=== PATIENT | female | born 1950 | race Caucasian/White ===

== ENCOUNTER → 2022-03-17 09:23 | Outpatient (BNVA) | payer MEDICARE, OTHER, SELFPAY | PROVIDERS: PCP Family Medicine; Referring Provider Family Medicine; Visit Provider Student in an Organized Health Care Education/Training Program | DX: M17.12 Unilateral primary osteoarthritis, left knee (principal) | CPT/HCPCS: 20610; 99204; J1040 ==

== ENCOUNTER 2024-03-18 11:49 | Outpatient (CLI) | payer MEDICARE, OTHER, SELFPAY ==
--- NOTE | 2024-03-18 11:00 | DI.RAD_ITS ---
Exam(s) XR HIP LT COMPLETE AP PELVIS EXAM: XR HIP LT COMPLETE AP PELVIS CLINICAL HISTORY: LEFT HIP PAIN. TECHNIQUE: 2D digital imaging was performed. Two views COMPARISON: CR Lumbar Spine 2 or 3 Views from 08/10/2023 CR Hip Left 2 Views w/ Pelvis from 08/10/2023 CR Lumbar Spine Comp Incl Bending from 08/17/2023 FINDINGS: BONES: No acute enthesophytes present the iliac wings and greater trochanters. Fracture is present. No bony destructive lesion is seen. JOINTS: No dislocation present. The hip joint spaces are maintained. There is spurring from the acet abula and margin of the left femoral head. Spurring at the SI joints. SOFT TISSUE: Normal. IMPRESSION: Moderate degenerative changes of the left hip. DATA REPOSITORY: RADIATION DOSE DELIVERED:
== END 2024-03-18 11:50 | disposition home or self-care (01) ==
LOC: DIORS 11:49
PROVIDERS: PCP Family Medicine; Referring Provider Family Medicine; Visit Provider Student in an Organized Health Care Education/Training Program
DX: M16.12 Unilateral primary osteoarthritis, left hip; M70.62 Trochanteric bursitis, left hip
CPT/HCPCS: 99214; 73502

== ENCOUNTER 2024-05-03 01:09 | Outpatient (CLI) | payer MEDICARE, OTHER, SELFPAY ==
[2024-05-03 11:39] LABS: HCT 37.9 % (36.0-46.0); HGB 12.5 g/dL (11.2-15.7); MCH 33.8 pg (27.0-33.0); MCV 102 fL (80-95); MPV 8.9 fL (8.0-11.0); Platelet Count 232 10^3/uL (130-400); RDW 13.3 % (11.7-14.6); RDW-SD 50.2 fL; WBC 5.93 10^3/uL (4.4-10.8)
[2024-05-03 12:00] LABS: Anion Gap 7.8 mmol/L (3-11); BUN 9 mg/dL (7-18); CO2 29.2 mmol/L (21.0-32.0); CREATININE 0.7 mg/dL (0.55-1.02); Calcium 9.2 mg/dL (8.5-10.1); Chloride 106 mmol/L (98-107); Glucose 96 mg/dL (74-106); Potassium 4.2 mmol/L (3.5-5.1); Sodium 143 mmol/L (136-145)
== END 2024-05-03 01:10 | disposition home or self-care (01) ==
LOC: LBO 01:09
PROVIDERS: PCP Family Medicine; Visit Provider Student in an Organized Health Care Education/Training Program
DX: M16.12 Unilateral primary osteoarthritis, left hip (principal); Z01.818 Encounter for other preprocedural examination
CPT/HCPCS: 36415; 80048; 85027

== ENCOUNTER 2024-05-17 05:49 | Day surgery (SDC) | payer MEDICARE, OTHER, SELFPAY ==
[2024-05-17] VITALS (43 sets, daily range): BP systolic 97–156; BP diastolic 45–98; PULSE 57–82; RESP 9–23; TEMP 36.3–36.6; O2SAT 92–99; BMI 28.3
[2024-05-17] MEDS: Acetaminophen 500 MG TAB 1000 MG PO (06:38)
[2024-05-17] MEDS: Celecoxib 200 MG CAP 400 MG PO (06:39)
[2024-05-17] MEDS: Lactated Ringers 1,000 ML 80 ML IV (07:05)
--- NOTE | 2024-05-17 07:20 | W.ANESPRE ---
General Info Date of Service Date Performed: 05/17/24 Height: 5 ft 4 in Weight: 74.9 kg Body Mass Index (BMI): 28.3 Surgical Procedure: Operation Date: 05/17/24 07:50 Proposed Procedure Side Surgeon p Hip Total Hip Anterior Left Héctor Eaton MD Meds Allergies and Home Medications Allergies Allergy/AdvReac Type Severity Reaction Status Date / Time No Known Allergies Allergy Verified 05/17/24 06:17 Home Medication ?Medication ?Instructions ?Recorded coenzyme Q10 100 mg capsule (Co 100 mg PO DAILY 03/17/22 Q-10) folic acid 1 mg tablet 2 mg PO DAILY 03/17/22 lisinopril 10 mg tablet 10 mg PO DAILY 03/17/22 methotrexate sodium 2.5 mg tablet 10 mg PO BID 03/17/22 pravastatin 20 mg tablet 20 mg PO DAILY 03/17/22 valacyclovir 500 mg tablet 500 mg PO DAILY PRN 01/17/24 inykpft-tjciedjtv-[id number] 333 mg-133 1 tab PO DAILY 05/03/24 mg-5 mg tablet acetaminophen 500 mg tablet 500 mg PO ONCE 05/17/24 (Acetaminophen Extra Strength) ibuprofen 400 mg tablet (IBU) 400 mg PO ONCE 05/17/24 leucovorin calcium 5 mg tablet mg 05/17/24 marijuana gummie 05/17/24 Current Visit Medications: Current Medications Generic Name Dose Route Start Last Admin Trade Name Darwin PRN Reason Stop Dose Admin Acetaminophen 1,000 mg 05/17/24 06:00 05/17/24 06:38 Acetaminophen 500 Mg Tab PO 05/17/24 23:59 1,000 mg PREOP SORAYA Administration Celecoxib 400 mg 05/17/24 06:00 05/17/24 06:39 Celecoxib 200 Mg Cap PO 05/17/24 23:59 400 mg PREOP SORAYA Administration Ringer's Solution 1,000 mls @ 80 mls/hr 05/17/24 06:00 05/17/24 07:05 IV 05/17/24 23:59 80 mls/hr INFUSION SORAYA Administration Cefazolin Sodium/Dextrose 2 gm in 50 mls @ 100 mls/hr 05/17/24 06:00 Ancef Duplex IVPB 05/17/24 23:59 PREOP SORAYA Tranexamic Acid/Sodium Chloride 1,000 mg in 100 mls @ 600 mls/hr 05/17/24 06:00 IVPB 05/17/24 23:59 PREOP SORAYA IV Miscellaneous Supplies 1 each 05/17/24 06:00 Iv Access IV 05/17/24 23:59 DIRECTED SORAYA Sodium Chloride 0 ml 05/17/24 06:00 Normal Saline Flush 10 Ml Syr IV 05/17/24 23:59 PRN PRN Sodium Chloride 0 ml 05/17/24 06:00 Normal Saline 10 Ml Vial IJ 05/17/24 23:59 DIRECTED PRN Sterile Water 0 ml 05/17/24 06:00 Water,Injection,Sterile 10 Ml Vial IJ 05/17/24 23:59 DIRECTED PRN PFSH Active Problems Active Problems: Problem Status Onset Code 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 states she is prone to superficial phlebitis TGA (transient global amnesia) Last March - following phone call about her scheduled right shoulder surgery Denies additional episodes; negative neuro work up Medical History Comments:: pt. reports it take alot to get her under Surgical History Surgical History Status post tubal ligation H/O colonoscopy History of breast lump/mass excision s/p right and left mass excisions mammos yearly Status post vein stripping bilateral Status post arthroscopy of right knee Fracture of right distal radius s/p ORIF Followed by hardware removal Status post right rotator cuff repair (04/24/23) Tobacco Smoking/Tobacco Use Status: Former Tobacco Use Alcohol Alcohol Intake: current Alcohol intake frequency: a few times a week Substance Use Substance use: Daily Substance use type: marijuana Details: Gummies HS for sleep. alcohol t-1, 2 glasses of wine Vital Signs and Lab Results Vital Signs Most Recent Vital Signs in EMR: Most Recent Vital Signs Temp Pulse Resp BP Pulse Ox 36.5 C 73 18 156/55 H 98 05/17/24 06:26 05/17/24 06:26 05/17/24 06:26 05/17/24 06:26 05/17/24 06:26 Lab Results Blood Type / Crossmatch: No Data to Display Complete Blood Count: White Blood Count 5.93 10^3/uL (4.4-10.8) 05/03/24 11:26 Red Blood Count 3.70 10^6/uL (3.93-5.22) L 05/03/24 11:26 Hemoglobin 12.5 g/dL (11.2-15.7) 05/03/24 11:26 Hematocrit 37.9 % (36.0-46.0) 05/03/24 11:26 Platelet Count 232 10^3/uL (130-400) 05/03/24 11:26 Complete Metabolic Panel: Sodium 143 mmol/L (136-145) 05/03/24 11:26 Potassium 4.2 mmol/L (3.5-5.1) 05/03/24 11:26 Chloride 106 mmol/L (98-107) 05/03/24 11:26 Carbon Dioxide 29.2 mmol/L (21.0-32.0) 05/03/24 11:26 BUN 9 mg/dL (7-18) 05/03/24 11:26 Creatinine 0.7 mg/dL (0.55-1.02) 05/03/24 11:26 Est GFR (CKD-EPI 2020) 90.70 (mL/min/1.73m2) 05/03/24 11:26 Calcium 9.2 mg/dL (8.5-10.1) 05/03/24 11:26 Glucose 96 mg/dL (74-106) 05/03/24 11:26 Liver Function Panel: No Data to Display Coagulation Panel: No Data to Display Cardiac Panel: No Data to Display Arterial Blood Gas: No Data to Display Venous Blood Gas: No Data to Display Pancreas Panel: No Data to Display Thyroid Panel: No Data to Display Infectious Disease: No Data to Display Blood Cultures: No Data to Display Toxicology Panel: No Data to Display Anesthesia Assessment and Plan Anesthesia History Personal History: No History of Anesthesia Complications Family History: No Family History of Anesthesia Complications Exercise Tolerance Exercise Tolerance: Metabolic Equivalents>4 Pertinent Negatives Pertinent Negatives: No Symptoms of GERD Cardiac & Pulmonary Exam Cardiac Exam: Normal S1/S2 Heart Sounds Pulmonary Exam: Clear Bilateral Breath Sounds Implantable Cardiac Device Does patient have a Pacemaker or an ICD?: No Airway Exam Known Difficult Airway: No Mallampati Class: 1 Mouth Opening: Normal (> 3cm) Thyromental Distance: Greater than 3 cm Neck Range of Motion: Full ROM Neck Circumference: Normal Teeth Condition: Normal Dentition ASA Classification ASA Score: ASA 2 Emergency Case?: No NPO Status NPO Status: NPO Clears >2 hours, Solids >8 hours Anesthesia Plan Resuscitation Status: Full Code Anesthesia Technique: General Anesthesia Airway Planned: Endotracheal Tube Monitors Used: Standard Monitors Preoperative Comments:: Pt requesting GETA. Family member with SAB complication and is not interested in spinal.
--- NOTE | 2024-05-17 07:45 | W.PM.DSUDISC ---
Date of service: 05/17/24 Discharge Plan Disposition Patient Disposition: Home Condition: Good Discharge Details Reason For Visit: Left hip DJD Attending Provider: Héctor Eaton Primary Care Provider: Glenn Dalton [place] Meds and New Rx's Prescriptions: New celecoxib [Celebrex] 200 mg capsule 200 mg PO BID PRNQty: 60 0RF Rx Instructions: Take one tablet twice daily for pain and inflammation aspirin 81 mg tablet,delayed release (DR/EC) 81 mg PO BID 30 Days Qty: 60 0RF acetaminophen 500 mg tablet 1,000 mg PO Q8H PRN Qty: 90 0RF Rx Instructions: Take two tablets up to every 8 hours as needed for pain pantoprazole 40 mg tablet,delayed release (DR/EC) 40 mg PO DAILY Qty: 14 0RF dexamethasone 4 mg tablet 4 mg PO DAILY Qty: 2 0RF Rx Instructions: Take one tablet once daily for two days docusate sodium [Colace] 100 mg capsule 100 mg PO BID Qty: 30 0RF oxycodone 5 mg tablet 5 mg PO Q6H PRNQty: 12 0RF Rx Instructions: Take one tablet up to every 6 hours as needed for severe postoperative pain Continued methotrexate sodium 2.5 mg tablet 10 mg PO BID Patient Comments: pt. reports she takes 9 tablets on monday lisinopril 10 mg tablet 10 mg PO DAILY folic acid 1 mg tablet 2 mg PO DAILY Rx Instructions: ONLY 6 DAYS PER WEEK pravastatin 20 mg tablet 20 mg PO DAILY coenzyme Q10 [Co Q-10] 100 mg capsule 100 mg PO DAILY vbtgdgs-mvdobookg-kduv 333-133-5 mg tablet 1 tab PO DAILY valacyclovir 500 mg tablet 500 mg PO DAILY PRN leucovorin calcium 5 mg tablet marijuana gummie Patient Comments: takes at night Discontinued acetaminophen [Acetaminophen Extra Strength] 500 mg tablet 500 mg PO ONCE Patient Comments: 1000 mg ibuprofen [IBU] 400 mg tablet 400 mg PO ONCE Discharge Instructions Additional Instructions: Total Hip Discharge Instructions Activity: The most important activity is to walk. You should try to take short walks a few times a day. You have no restrictions on movement or positioning, but do not try to force what you do. You will find some stiffness and weakness with hip flexion (lifting your knee). Do not try to strengthen this too early, continue to practice walking and stairs and this will come. - Outpatient physical therapy can be helpful to help return you to a normal gait and improve your flexibility and strength. This can start around 2 weeks. For some patients, it?s not necessary. Usually this is determined at the time of discharge or at the first post-operative visit. - You should wear the SOPHIE hose on both legs for 2 weeks. Dressing: Keep the surgical dressing in place for at least one week. After the first week it may be removed and replace with light gauze and tape or nothing. It may get wet after 3 days but avoid soaking the dressing. If it gets wet, just lightly pat dry. It is important to always keep some gauze between skin folds, especially when you are sitting. Spend some time with the wound exposed when you are lying flat as the incision does wrinkle onto itself. Medications: - You should take Tylenol and an anti-inflammatory Celebrex as your primary pain control medications. If the Celebrex is too expensive or not covered, please call the office for another alternative (Advil/Ibuprofen or Naproxen/Aleve). - You have been prescribed a stronger pain medication Oxycodone for breakthrough pain, take as needed as prescribed. - You have also been prescribed a stomach acid reduction agent Pantoprozole to help reduce stomach acid and reflux. - You have also been prescribed Decadron to help with post-operative nausea and pain. You will take this for two days starting tomorrow. - You will be taking Aspirin 81mg twice a day for DVT prevention unless instructed otherwise. - If you have constipation you should take Colace (which has been prescribed) or Miralax (which is available [id number]). It takes most people 3-4 days to have a bowel movement. Follow-up: 2 weeks If you have any acute concerns or questions, please do not hesitate to contact the office at [phone]. You may contact Dr. Eaton with any questions after hours through the hospital at [phone] or on his cell phone at [phone]. Referrals: Héctor Eaton MD [ [facility] STAFF PHYSICIAN] - Equipment/Supplies: Walker Activity:: Elevate Remove Dressings/Wound Care:: Do Not Remove Shower/Bathe:: Cover Diet:: As Tolerated Discharge Orders Discharge Orders: Discharge Order (Routine); Ordered 05/17/24 Ordered By: Kristine Conroy
[2024-05-17] MEDS: ceFAZolin 2 GM/50 ML BAG IVPB (07:59)
[2024-05-17] MEDS: TRANEXAMIC ACID/SOD. CHL. 1,000 MG/100 ML BAG 600 MG IVPB (08:15)
--- NOTE | 2024-05-17 09:16 | DI.RAD_ITS ---
Exam(s) XR HIP LT IN OR EXAM: XR HIP LT IN OR CLINICAL HISTORY: Degenerative joint disease of left hip. TECHNIQUE: 2D and realtime digital imaging was performed. COMPARISON: CR XR HIP LT COMPLETE AP PELVIS from 03/18/2024 FINDINGS: Hard copy image shows placement of a left hip prosthesis. Alignment appears satisfactory. Please see procedure note for details. Fluoro time: 30.9seconds RADIATION DOSE DELIVERED: Lonnier=2.53 mGy
--- NOTE | 2024-05-17 09:45 | ROE_ITS ---
Operative Note Operative Note PRE-OP DIAGNOSIS: Left Hip Osteoarthritis POST-OP DIAGNOSIS: same PROCEDURE: Left Anterior Total Hip Arthroplasty with Intraoperative Navigation SURGEON: Héctor Eaton MUSICAL INSTRUMENT SUPERVISOR: Eugenie Dorman ANESTHESIA TYPE: General LMA/ETT Refer to Anesthesia Record ESTIMATED BLOOD LOSS: 300 PATHOLOGY: none sent TOURNIQUET TIME: 0 COMPLICATIONS: None Patient was transported to: PACU Patient's condition: stable Implants: 1. Depuy [place] Acetabular Component, 48mm 2. Depuy Acetabular Liner, [id number] 3. Depuy Actis High Offset Collared Femoral Stem, Size 4 4. Depuy Altrx Ceramic Femoral Head, Size 36+1mm Indications: I have seen Hannah in clinic for symptoms of hip arthritis, confirmed with radiographic findings. She has exhausted nonoperative methods and was having significant limitations in daily function and desired better function and less pain. I discussed the technical details of a hip replacement. I explained the risks of the procedure to include, but not limited to, bleeding, infection, pain, stiffness, fracture, damage to nerves and vessels, damage to muscles and tendons, loosening, instability, leg length inequality, need for repeat procedure, blood clot and cardiopulmonary demise. Despite these risks, Hannah elected to proceed. Findings: There was significant signs of arthritis throughout the hip. Procedure Description: Hannah was greeted in the preoperative holding area where the correct side was identified and marked. The consent was reviewed with the patient and signed. The history and physical was updated. All questions were answered. She was taken back to the operating room. A general anesthestic was then administered. The feet were wrapped with cast padding and Coban and then placed into the boot liners and then into the boots. Care was taken to protect the skin and make sure the heels were fully down and the boots were stable. The patient was then positioned onto the HANA table. Both legs were held in a neutral position. SCDs were applied. The patient was then slid down onto a peroneal post. Prophylactic antibiotics in the form of Cefazolin were administered. 1g of Tranxemic Acid was given intravenously within 30 minutes of incision. The left leg was then prepped with Chloraprep and draped in a standard fashion. A second prep with Chloraprep was performed prior to placement of a shower-curtain type drape with Iodine impregnated skin protection. A timeout to confirm correct identity, side and site, procedure, allergies, anesthesia, and medical concerns was performed. An obliquely oriented incision was made starting lateral to the ASIS and running distal over the Tensor Fascia Margarita (TFL) muscle belly toward the fibular head, approximately 10cm. The skin and soft tissue was dissected sharply, through Maye?s fascia, and to the fascia of the TFL. With the fascia and superior border of the IT band identified, the fascia was incised with a new knife just above any perforators from the IT band. The TFL muscle belly was bluntly dissected away from the fascia and moved laterally. The fat between TFL and rectus was identified to ensure the dissection was not within the TFL. Blunt dissection created space between abductors and the capsule and retractor was placed over the lateral femoral neck. The fibers of the rectus femoris tendon were identified and these were freed from the anterior capsule. A second cobra retractor was placed around the medial femoral neck. The TFL was further retracted laterally to show the deep fascia. Careful dissection through this layer identified three main crossing vessels of the lateral femoral circumflex. These were cauterized in multiple locations and then cut without any noticeable bleeding. The TFL was further released bluntly from the deep fascia to expose anterior hip capsule and fat The soft tissue orthopaedic retractor was then placed beneath the TFL and against sartorius and medial soft tissues to protect and retract the soft tissues. A T-capsulotomy was then performed starting at the superior lateral acetabulum and moving distally to the intertrochanteric ridge. These capsular flaps were tagged with a No. 1 Ethibond and elevated from within. The capsular flaps were released to the shoulder of the lateral neck and to the lesser trochanter to give excellent visualization of the proximal femur. A neck osteotomy was performed using an oscillating saw based on preoperative templates. This cut started in the shoulder and of the lateral neck and exited medially. The saw was at all times directed medially to avoid injury to the gre ater trochanter. Gross traction was applied to the leg and the osteotomy opened. The femoral head was removed with a corkscrew, making sure to protect the TFL on its exit. Traction was released after head removal. This was measured on the back table to determine the starting reamer size. Portions of the rectus obscuring visualization were minimally elevated off the superior acetabulum. An anterior retractor was placed over the anterior wall between capsule and labrum and attached to the Gripper retraction system. The femur was rotated to 90 degrees and medial capsule was fully released until the lesser trochanter was palpable and visible; the femur was returned to 30 degrees. A posterior retractor was placed similarly between capsule and labrum. This provided excellent visualization. The contents of the cotyloid fossa were removed with electrocautery and the labrum was removed with a knife. There was a notable floor osteophyte. There was significant chondromalacia of the lucia perior acetabulum. Acetabular reaming began with a 44mm reamer. This first reaming was directed anterior to posterior and medial to get down to the true floor. This was inspected and reamed until the true floor was reached. The anterior retractor was then released and entry and exit was provided by traction on the capsular flaps. I then reamed sequentially up to a 48mm reamer where good fit was obtained. The larger reamers were oriented based on anatomical reference of the anterior and lateral muller to ensure proper abduction and anteversion. Positioning and size was confirmed with the fluoroscopy. A 48mm Depuy [place] acetabular component was selected. The acetabulum was reamed around the periphery with the selected acetabular size to prevent a rim fit. The deep tissues were irrigated. The acetabular component was then impacted in a position of about 40-45 degrees of abduction and 15-20 degrees of anteversion, using the patient?s anatomy as the ultimate landmark. Fluoroscopy was used to confirm this. There was excellent racehorse trainer of the acetabular component and the inserting handle was removed. The acetabular liner, Depuy [id number] polyethylene liner, was inserted and lined up with the tines of the acetabular component. There was no soft tissue interposition. The liner was then impacted into position and confirmed to be well-seated. A portion of the janet-articular cocktail was then injected around the acetabulum into the capsule and periosteum. This cocktail consisted of 123mg of Ropivacaine, 0.25mg of Epinephrine, 0.04mg of Clonidine, and 15mg of Ketorolac, diluted to 50cc. The leg was rotated to 120 degrees. Any remaining medial capsule was released until the lesser trochanter was easily palpable. A retractor was placed medially. The lateral capsule was further released into the shoulder to allow access to the greater trochanter. A Navarro retractor was placed over the greater trochanter which allowed the trochanter to flip in front of the capsule for excellent exposure. The leg was brought down into maximal extension and 20 degrees of adduction while ensuring there was no impingement on the acetabulum. Any remnant capsule within the trochanter was released. Piriformis and obturator externis were identified and protected. There was excellent access to the proximal femur. The lateral neck remnant was removed with a rongeur. A blunt canal probe was used to identify the canal and trajectory for later broaching. A box osteotome initiated the broach course. A small curved rasp and a curved curette were used to work laterally. Broaching then began with a starter Actis broach. This was inserted manually around the trochanter and into the canal before mallet blows. The broach was seated to a few millimeters below the cut level based on the neck cut and the preoperative template. Sequential broaching was continued with the PredPolse pneumatic broaching device until a tight fit was obtained with good rotational control of the femur. A trial standard neck was inserted along with a +5 trial head. The leg was brought out of extension and adduction and then reduced with traction and internal rotation. The leg was stable anteriorly in a position of 30 degrees of extension and 90 degrees of external rotation. Fluoroscopy was used to ensure there was no fracture and the stem was seated well. Leg lengths were checked with an AP pelvis and pelvic reference points. sourceasy navigation system was used to confirm appropriate positioning and leg length and offset. This overcorrected the leg length but undercorrected offset, improved by advancing the stem and going to a high offset stem. Once content with the desired offset and leg lengths, the leg was brought back into extension, external rotation and adduction. The periosteum and surrounding tissue was injected with remaining portion of the janet-articular cocktail. The proximal femur was irrigated as well as the deep tissues. The Depuy Actis high offset collared stem, size 4, was then manually inserted into the proximal femur making sure to control rotation. It was then malleted into position with light blows, giving breaks to allow bone expansion and decrease risk of fracture. The selected Depuy Altrx Ceramic Head, size 32+1mm, was then placed onto the clean and dry trunnion and secured with impaction onto the tapered fit. The leg was brought back out of extension and adduction and reduced with traction and internal rotation. Stability was confirmed with no shuck at 90 degrees of external rotation and 30 degrees of extension. No impingement through range of motion arc. Final x-ray images were obtained with fluoroscopy to confirm adequate positioning and no intraoperative fracture. The deep tissues were thoroughly irrigated with Surgiphor, betadine solution. This was allowed to sit in the wound for 3 minutes before being thoroughly irrigated out with normal saline. The capsule was then reapproximated with the previously placed Ethibond sutures. The TFL fascia was finally closed with a No. 2 Stratafix, barbed suture. Deep tissues were then reapproximated with 0 Vicryl and a running 2-0 Vicryl. The skin was closed with a running 4-0 Monocryl in a subcuticular fashion. This was reinforced with skin glue. A Mepilex silver dressing was applied. At the end of the case, all counts were correct. Hannah was transferred to the hospital bed without difficulty and suffering no complications. Hannah has a good prognosis. Physical therapy will start today and without restrictions, weight-bearing as tolerated. Aspirin 81mg BID will be used for DVT prophylaxis. Date of Procedure: 05/17/24
[2024-05-17] MEDS: HYDROmorphone 1 MG/ML SYR IVP ×3 (09:55→10:31)
--- NOTE | 2024-05-17 12:55 | IN_ITS ---
PT Notes Visit Reasons: Left hip DJD Physical Therapy Day Surgery Initial Evaluation Date:05/17/2024 Referring Doctor: AUGUSTINE Hoffman PT Orders: PT CONSULT: S/P Ortho Surgery Precautions: WBAT on the L LE with AD. Patient Profile/Admitting Diagnosis: Hannah is a 73-year-old female with degenerative joint disease of the left hip and is status post left total hip arthroplasty on postoperative day 0. PMHX: Medical History (Updated 05/03/24 @ 10:31 by Kristine Conroy) TGA (transient global amnesia) Last Fall - following phone call about her scheduled right shoulder surgery Denies additional episodes; negative neuro work up Surgical History (Updated 05/03/24 @ 10:31 by Kristine Conroy) Status post tubal ligation H/O colonoscopy History of breast lump/mass excision s/p right and left mass excisions mammos yearly Status post vein stripping bilateral Status post arthroscopy of right knee Fracture of right distal radius s/p ORIF Followed by hardware removal Status post right rotator cuff repair (04/24/23) Social History/Home Situation: Lives with in a private home with 5 steps to enter with rails on B sides that are far apart. Has a flight of steps to the second floor of the house. Rich will be able to provide assistance on one side for safety. Was modified indepednent with all mobility ADLs using the SPC. Equipment Owned/DME: FWW, SPC Subjective: Complained of being groggy. Burning pain in the outer side of hip and middle part of thigh that subsoded with pain medication intake and with walking. No Objective: General Observation: Mepilex Ag over surgical incision. TEDS to be legs. Mental Status: A and O x 4 Pain: 9/10 initially on the lateral middle thigh that subsided with ambulation activity to 5/10 with inatke of pain medication ROM: Right Lower Extremity: Hip flexion WFL. Hip abduction WFL. Knee flexion WFL. Ankle dorsiflexion WFL. Ankle plantarflexion WFL. Left Lower Extremity: Hip flexion lacks the last 25% of AROM due to pain. Hip abduction WFL. Knee flexion 20 degrees to 90 degrees. Knee extension -20 degrees ankle dorsiflexion WFL. Ankle plantarflexion WFL. Strength: Right Lower Extremity: Hip flexors 5/5. Hip abductors 5/5. Knee flexors 5/5. Knee extensors 5/5. Ankle dorsiflexors 5/5. Ankle plantarflexors 5/5. Left Lower Extremity:Hip flexors 3-/5. Hip abductors 4-/5. Knee flexors 3-/5. Knee extensors 4-/5. Ankle dorsiflexors 5/5. Ankle plantarflexors 5/5. Ankle dorsiflexion WFL. Ankle plantarflexion WFL. Sensation: Intact tested pain and light pressure in bilateral lower extremities Bed Mobility/Transfers: Minimal cueing provided for use of B hands as needed for support, movement sequence, AD management, and posture to reduce fall risk and minimize pain report Supine to sit stand by assist Sit to stand contact guard assist with FWW Stand to sit contact guard assist with FWW Bed to chair contact guard assist with FWW Gait: Facilitated safe and correct performance of level surface ambulation covering a distance of 150 feet using front wheeled walker with step to gait pattern. Contact-guard assist provided. Minimal verbal cueing provided for AD management, weight distribution and limb advancement, and posture to minimize pain reported reduce fall risk. Stairs: Guided patient with safe and correct negotiation of 3 x 4 inch steps and 2 x 6 inch steps while holding onto bilateral rails with step to gait pattern requiring minimal verbal cueing for correct sequence, hand placement, posture to minimize pain reported reduce fall risk. Balance: Static Sitting: Good Dynamic Sitting: Good Static Standing: Fair Dynamic Standing: Fair Special Tests: Mobility Limitations Standardized Measure [facility] AM-PAC 6 clicks Basic Mobility Inpatient Short Form: Raw Score: 20 CMS Score: 36% deficit Informed Consent/Education: Patient instructed in purpose of PT consult. Packet containing JACQUELINE exercise protocol has been given to patient. Trained patient with correct performance of exercises below to maximize motor control, joint flexibility, soft tissue extensibility of the L hip musculature to facilitate return to independent functional mobility performance. Access Code: [email or web address] URL: [email or web address] Date: 05/17/2024 Prepared by: Renetta Pride Exercises - Gluteal Sets - 1 x daily - 7 x weekly - 1 sets - 10 reps - 5 hold - Supine Heel Slide - 1 x daily - 7 x weekly - 1 sets - 10 reps - 5 hold - Supine Ankle Pumps - 1 x daily - 7 x weekly - 1 sets - 10 reps - 5 hold - Seated March - 1 x daily - 7 x weekly - 1 sets - 10 reps - 5 hold - Seated Long Arc Quad - 1 x daily - 7 x weekly - 1 sets - 10 reps - 5 hold Assessment: Patient was able to work through pain symptoms with slow, careful movements as well as correct techniques. Patient requires the use of a front wheeled walker for all mobility ADL performance maximize independence and reduce fall risk. Patient presents with clinical signs and symptoms consistent with current/admitting diagnoses that have resulted to mobility limitations, gait instability, generalized weakness, and impairment of motor control as demonstrated by the following impairment level findings: 1. Decreased strength to left hip major muscle groups 2. Impaired standing balance 3. Limitation of joint range of motion in left hip Impairments are contributing to the following functional limitations: 1. Inability to safely ambulate without assistive device 2. Increase completion time for mobility ADL performance 3. Increased fall risk Patient is assessed as a 62528 moderate complexity based on the following: History: 73-year-old female with impairment level findings, functional limitations, and past medical history as indicated above Examination: Demonstrable impairment in strength, balance, and mobility level with underlying impairments and functional limitations as documented above Presentation: Evolving Decision Makin moderate complexity Goals: N/A. PT evaluation and 1-2 treatment sessions only for functional mobility training using recommended AD and for HEP instruction. Plan of Care/Treatment Plan: N/A. PT evaluation and 1-2 treatment session only for functional mobility training using recommended AD and for HEP instruction. DISCHARGE RECOMMENDATIONS: Home when medically cleared by orthopedic surgeon. Recommend outpatient PT services in order to optimize functional mobility outcomes and facilitate return to independent community ambulation without an assistive device. TREATMENT CODE/TIME: 96965 x 25 minutes for 1 unit, 15240 x 28 minutes for 2 units (12:55? 13:48). Thank you for the opportunity to participate in the care of this patient. Renetta Pride PT, DPT, CLT [facility] [place], [place]
[2024-05-17] MEDS: oxyCODONE 5 MG TAB PO (13:15)
--- NOTE | 2024-05-17 13:52 | W.ANESPOSTOP ---
Postoperative Evaluation Date, Time and Location Date Performed: 05/17/24 Time Performed: 13:53 Patient Location: Day Surgery Unit Vital Signs Most Recent Imported Vital Signs: Most Recent Vital Signs Temp Pulse Resp BP Pulse Ox 36.3 C L 69 16 123/57 L 93 05/17/24 12:32 05/17/24 12:32 05/17/24 12:32 05/17/24 12:32 05/17/24 12:32 Pain Score Most Recent Pain Score: Most Recent Pain Score Pain Level 4 05/17/24 12:15 Assessment Mental Status: Awake (Alert & Oriented to Patient Baseline) Airway and Respiratory Function: Patent airway with normal (patient baseline) respiratory exam Cardiovascular Function: Hemodynamically Stable Hydration Status: Adequately Hydrated Nausea & Vomiting: No Nausea or Vomiting Pain: Pain is tolerable per patient Peripheral Nerve Block: Patient did not receive a nerve block
== END 2024-05-17 14:37 | disposition home or self-care (01) ==
PROVIDERS: PCP Family Medicine; Visit Provider Student in an Organized Health Care Education/Training Program
PROC: (CPT 27130; principal; 2024-05-17 07:30)
DX: M16.12 Unilateral primary osteoarthritis, left hip (principal); I10 Essential (primary) hypertension; M06.9 Rheumatoid arthritis, unspecified; E78.5 Hyperlipidemia, unspecified
CPT/HCPCS: 20985; 27130; 97162; 97530; 73501; C1776; J0690; J1100; J1171; J2250; J2401; J2405; J2704; J3010

== ENCOUNTER 2024-05-30 15:30 | Outpatient (CLI) | payer MEDICARE, OTHER, SELFPAY ==
--- NOTE | 2024-05-30 09:30 | DI.RAD_ITS ---
Exam(s) XR HIP LT COMPLETE AP PELVIS EXAM: XR HIP LT COMPLETE AP PELVIS CLINICAL HISTORY: 1ST POST OP S/P L JACQUELINE. TECHNIQUE: 2D digital imaging was performed. Two images were obtained. AP pelvis and lateral left h ip views were obtained. COMPARISON: CR XR HIP LT COMPLETE AP PELVIS from 03/18/2024 XA XR HIP LT IN OR from 05/17/2024 FINDINGS: BONES: There are stable post operative changes of a left total hip arthroplasty present. No fracture or dislocation. JOINTS: The orthopedic hardware is in good position. No evidence of hardware loosening. SOFT TISSUE: Normal. IMPRESSION: Stable left total hip arthroplasty. DATA REPOSITORY: RADIATION DOSE DELIVERED:
== END 2024-05-30 15:31 | disposition home or self-care (01) ==
LOC: DIORS 15:30
PROVIDERS: PCP Family Medicine; Visit Provider Physician Assistant
DX: Z96.642 Presence of left artificial hip joint (principal); Z47.1 Aftercare following joint replacement surgery
CPT/HCPCS: 99024; 73502

== ENCOUNTER → 2024-06-27 10:46 | Outpatient (BNVA) | payer MEDICARE, OTHER, SELFPAY | PROVIDERS: PCP Family Medicine; Referring Provider Family Medicine | DX: Z47.1 Aftercare following joint replacement surgery (principal); Z96.642 Presence of left artificial hip joint | CPT/HCPCS: 99024 ==

== ENCOUNTER → 2024-08-26 13:17 | Outpatient (BNVA) | payer MEDICARE, OTHER, SELFPAY | PROVIDERS: PCP Family Medicine; Referring Provider Family Medicine; Visit Provider Student in an Organized Health Care Education/Training Program | DX: Z47.1 Aftercare following joint replacement surgery (principal); Z96.642 Presence of left artificial hip joint | CPT/HCPCS: 99024 ==

== ENCOUNTER 2024-09-16 00:18 | Outpatient (CLI) | payer MEDICARE, OTHER, SELFPAY ==
--- NOTE | 2024-09-16 08:00 | DI.MRI_ITS ---
Exam(s) MR LUMBAR SPINE WO EXAM: MR LUMBAR SPINE WO CLINICAL HISTORY: PAIN M54.16 RADICULOPATHY LUMBAR REGION. TECHNIQUE: Multiplanar multisequence MRI of the Lumbar spine was performed. COMPARISON: None FINDINGS: Bones: The last intervertebral disc space is designated the L5/S1 level for the numbering purpose of this ex amination. There is an old mild compression fracture of the superior endplate of T11. The remaining vertebral b alfonzo heights are well maintained. Alignment: Unremarkable. The marrow signal characteristics are unremarkable. Cord: The conus tip ends at the T12 level. It is of normal size and signal intensity. T12-L1: No focal disc herniation is present. No central spinal canal stenosis.No neural foraminal st enosis. L1-2: No focal disc herniation is present. No central spinal canal stenosis.No neural foraminal sten osis. L2-3: No focal disc herniation is present. No central spinal canal stenosis.No neural foraminal [place] nosis. L3-4: No focal disc herniation is present. Mild facet degenerative changes. Ligamentous hypertrophy , greater on the right. Mild central spinal canal stenosis.No neural foraminal stenosis. L4-5: Mild loss of disc height. Minimal disc bulging. No focal disc herniation is present. Facet degenerative changes and ligamentous hypertrophy create moderate central canal stenosis, mainly of th e AP dimension of the canal. Mild left neural foraminal stenosis. L5-S1: Mild facet degenerative changes. No focal disc herniation is present. No central spinal ca nal stenosis.No neural foraminal stenosis. The visualized SI joints and sacrum are unremarkable. Soft tissues: The paraspinal soft tissues are unremarkable. IMPRESSION: Facet degenerative changes cause moderate central canal stenosis at L4-5 and mild central canal steno sis at L3-4. Mild left neural foraminal narrowing at L4-5. DATA REPOSITORY:
== END 2024-09-16 00:38 ==
LOC: DI 00:18
PROVIDERS: PCP Family Medicine; Visit Provider Student in an Organized Health Care Education/Training Program
DX: M54.16 Radiculopathy, lumbar region (principal)
CPT/HCPCS: 72148

== ENCOUNTER 2024-10-01 09:25 | Outpatient (CLI) | payer MEDICARE, OTHER, SELFPAY ==
--- NOTE | 2024-10-01 06:00 | DI.RAD_ITS ---
Exam(s) XR PAIN CLINIC LUMBAR SP 2V EXAM: XR PAIN CLINIC LUMBAR SP 2V CLINICAL HISTORY: Dx: Lumbar Spondylosis TECHNIQUE: 2D and realtime digital imaging was performed. CONTRAST MATERIAL: Refer to procedure report. COMPARISON: No exams were available for comparison FINDINGS: Fluoroscopy was provided for Dr. Singleton during the performance of a lumbar facet joint injection. Please refer to the procedure report for complete details. Ka,r=12.0 mGy IMPRESSION: RADIATION DOSE DELIVERED: 0.0 0.0 0
[2024-10-01 09:39] VITALS: BP 138/84; PULSE 69; RESP 18; TEMP 36.6; O2SAT 99
[2024-10-01 10:06] VITALS: PULSE 67; O2SAT 97
[2024-10-01 10:10] VITALS: PULSE 64; O2SAT 96
[2024-10-01 10:20] VITALS: PULSE 65; O2SAT 97
--- NOTE | 2024-10-01 10:21 | PDOC.PAIN ---
Date of service: 10/01/24 Time of Service: 10:25 Pain Managment Procedure Note Procedure Note Procedure Note: Diagnostic Lumbar Facet Joint Injection ? Location: Bilateral Lumbar Facet Joints ? Levels: L4-5, L5-S1 ? 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 Post-procedure Diagnosis:? The same as above ? Sedation:? None ? Estimated blood loss:? less than 2 cc ? Surgeon: Eugene Singleton MD COMMENT: Pain 5/10 .Decision was made to proceed with intra-articular facet injections for the possibility of not having to do medial branch blocks and radiofrequency ablation if patient get long lasting relief (> 3 months). Patient did not want medial branch blocks and radiofrequency ablation if she could avoid it. ? Procedure Detail:? The procedure and potential risks were explained to the patient and informed written consent was obtained. The patient was escorted to the procedure room and placed in the prone position. Pillows were utilized for proper positioning and comfort.? Time out was performed in the procedure room with nursing staff confirming the patient's identity, procedure to be performed, allergies, and any blood thinning or anti-platelet medications.? Sterile technique was maintained throughout the procedure.? The patient's lumbosacral area was prepped with chlorhexidine and draped in a sterile fashion. Lidocaine 1% was used to anesthetize the skin. An oblique fluoroscopic view was obtained, with visualization of the facet joint.? A 22gauge, Quincke needle was gently advanced through the facet capsule.? Needle placement was confirmed with fluoroscopy in AP, oblique, and lateral views by injecting 0.25cc of contrast.? 20 mg of Depomedrol and 0.5ml of 0.5% bupivacaine was injected into the capsule at L4-5 Bilateral. This was repeat at L5-S1 Bilateral? The patient tolerated the procedure well and was discharged home with instructions. Permanent images saved and recorded. Plan:? Follow up prn COMMENT:Pain went from 5 /10 to 0/10. Pain? 100 % better. Will use this as both diagnostic and potentially therapeutic.? With short-term relief from the level that it was not long-lasting then we will proceed with for LMBB #2 and possible radiofrequency ablation Coding Conscious Sedation used for procedure: No CPT Codes: LMBB (includes Fluoro) Lumbar/Sacral, single lvl *BILATERAL* - [id number] ([id number]~G5) LMBB (includes Fluoro) Lumbar/Sacral, 2nd lvl - 84421 ([id number] ~G) LT - LEFT SIDE, RT - RIGHT SIDE Additional Codes: Date of Service (61020) Date of service: 10/01/24
[2024-10-01] MEDS: Nerve Block Tray 1 EACH MC (10:28)
[2024-10-01] MEDS: Bupivacaine 0.5% Pres-Free 10 ML VIAL IJ (10:29)
[2024-10-01] MEDS: methylPREDNISolone ACETATE 80 MG/ML VIAL IJ (10:30)
== END 2024-10-01 09:26 | disposition home or self-care (01) ==
LOC: PC 09:26
PROVIDERS: PCP Family Medicine; Visit Provider Anesthesiology Pain Medicine
DX: M47.817 Spondylosis without myelopathy or radiculopathy, lumbosacral region (principal); M47.816 Spondylosis without myelopathy or radiculopathy, lumbar region; M54.50 Low back pain, unspecified
CPT/HCPCS: 64493; 64494; 72100; J0665; J1010

== ENCOUNTER 2024-11-11 09:56 | Outpatient (CLI) | payer MEDICARE, OTHER, SELFPAY ==
--- NOTE | 2024-11-11 09:45 | DI.RAD_ITS ---
Exam(s) XR KNEE RT 3V AP,LAT,MELA EXAM: XR KNEE RT 3V AP,LAT,MELA CLINICAL HISTORY: pain. TECHNIQUE: 2D digital imaging was performed. Three views. COMPARISON: No exams were available for comparison FINDINGS: BONES: No acute fracture is present. No bony destructive lesion is seen. Small enthesophyte at the quadriceps insertion on the patella. JOINTS: Mild narrowing of the lateral femoral tibial joint space with mild periarticular spurring. Mild spurring at the medial for femoral condyle medial tibial plateau as well as patella. No joint effusion is seen. SOFT TISSUE: Venous varicosities. IMPRESSION: Oxmf-op-gzblpmfy degenerate changes, greatest of the lateral femoral tibial joint DATA REPOSITORY: RADIATION DOSE DELIVERED:
== END 2024-11-11 09:57 | disposition home or self-care (01) ==
LOC: DIORS 09:57
PROVIDERS: PCP Family Medicine; Referring Provider Family Medicine; Visit Provider Student in an Organized Health Care Education/Training Program
DX: M17.0 Bilateral primary osteoarthritis of knee (principal); M25.512 Pain in left shoulder
CPT/HCPCS: 99213; 20610; 73562; J1010

== ENCOUNTER → 2024-11-25 14:43 | Outpatient (BNVA) | payer MEDICARE, OTHER, SELFPAY | PROVIDERS: PCP Family Medicine; Referring Provider Family Medicine; Visit Provider Student in an Organized Health Care Education/Training Program | DX: M19.012 Primary osteoarthritis, left shoulder (principal); M75.102 Unspecified rotator cuff tear or rupture of left shoulder, not specified as traumatic; M25.512 Pain in left shoulder | CPT/HCPCS: 20611; J1010 ==

== ENCOUNTER → 2025-03-04 13:02 | Outpatient (BNVA) | payer MEDICARE, OTHER, SELFPAY | PROVIDERS: PCP Family Medicine; Referring Provider Family Medicine; Visit Provider Student in an Organized Health Care Education/Training Program | DX: M75.102 Unspecified rotator cuff tear or rupture of left shoulder, not specified as traumatic (principal); M12.812 Other specific arthropathies, not elsewhere classified, left shoulder | CPT/HCPCS: 99214 ==

== ENCOUNTER 2025-03-10 02:01 | Outpatient (CLI) | payer MEDICARE, OTHER, SELFPAY ==
--- NOTE | 2025-03-10 06:45 | DI.CT_ITS ---
Exam(s) CT UPPER EXTREMITY LT WO EXAM: CT UPPER EXTREMITY LT WO CLINICAL HISTORY: SURGICAL PLANNING,lt rotator cuff arthropathy,m75.102,m12,812. TECHNIQUE: Imaging Protocol: Axial computed tomography images with coronal and sagittal reformatted images were created and reviewed. COMPARISON: CR Shoulder Left Complete 2 Views from 10/24/2024 MR MRI Upper Ext Jnt Lt w/o cont from 10/30/2024 FINDINGS: The examination is limited due to patient motion artifact. Bones: The osseous structures and articular surfaces are intact. Bony alignment is satisfactory. No cellulitic or osteomyelitic changes are identified. There are mild degenerative changes seen at the acromioclavicular joint. There are mild degenerative changes seen at the glenohumeral joint. No lytic or sclerotic lesions are identified. Soft Tissues: Normal. IMPRESSION: Mild degenerative changes seen at both the acromioclavicular and glenohumeral joints. RADIATION DOSE DELIVERED: 350.03mGy.cm Total DLP 350.03mGy.cm Total DLP DATA REPOSITORY: All CT scans at this facility are submitted to the National Radiology Data Registry (NRDR) Dose Index Registry (DIR) with the [employer] ([employer]). RADIATION OPTIMIZATION: All CT scans at this facility use at least one of these dose optimization techniques: automated exposure control; mA and/or kV adjustment per patient size (includes targeted exams where dose is matched to clinical indication); or iterative reconstruction.
== END 2025-03-10 02:21 ==
LOC: DI 02:02
PROVIDERS: PCP Family Medicine; Visit Provider Student in an Organized Health Care Education/Training Program
DX: M19.012 Primary osteoarthritis, left shoulder (principal)
CPT/HCPCS: 73200

== ENCOUNTER → 2025-03-11 14:21 | Outpatient (BNVA) | payer MEDICARE, OTHER, SELFPAY | PROVIDERS: PCP Family Medicine; Referring Provider Family Medicine; Visit Provider Student in an Organized Health Care Education/Training Program | DX: M75.102 Unspecified rotator cuff tear or rupture of left shoulder, not specified as traumatic (principal); M12.812 Other specific arthropathies, not elsewhere classified, left shoulder | CPT/HCPCS: 99214 ==

== ENCOUNTER 2025-03-20 09:27 | Day surgery (SDC) | payer MEDICARE, OTHER, SELFPAY ==
[2025-03-20] VITALS (28 sets, daily range): BP systolic 129–161; BP diastolic 58–84; PULSE 58–79; RESP 13–21; TEMP 36.2–36.6; O2SAT 95–100; BMI 26.9
--- NOTE | 2025-03-20 07:17 | W.PM.DSUDISC ---
Date of service: 03/20/25 Discharge Plan Disposition Patient Disposition: Home Condition: Stable Discharge Details Attending Provider: Isauro Zhang Primary Care Provider: Glenn Dalton Home Meds and New Rx's Prescriptions: New naproxen 250 mg tablet 250 mg PO BID PRN (Reason: Moderate pain) Qty: 25 0RF oxycodone 5 mg tablet 5 - 10 mg PO Q4H PRN (Reason: Moderate to severe pain) Qty: 18 0RF Continued lisinopril 10 mg tablet 10 mg PO DAILY folic acid 1 mg tablet 2 mg PO DAILY Rx Instructions: ONLY 6 DAYS PER WEEK pravastatin 20 mg tablet 20 mg PO DAILY coenzyme Q10 [Co Q-10] 100 mg capsule 100 mg PO DAILY methotrexate sodium 2.5 mg tablet 8 mg PO BID Patient Comments: pt. reports she takes 9 tablets on monday vmwceca-fpzxfbond-nyps 333-133-5 mg tablet 1 tab PO DAILY valacyclovir 500 mg tablet 500 mg PO DAILY PRN Patient Comments: prn marijuana gummie Patient Comments: takes at night acetaminophen 500 mg tablet 1,000 mg PO Q8H PRN Qty: 90 0RF Patient Comments: prn Rx Instructions: Take two tablets up to every 8 hours as needed for pain leucovorin calcium 5 mg tablet 5 mg PO .sundays Discharge Instructions Additional Instructions: Surgery: Left reverse total shoulder arthroplasty (constrained liner) 03/20/2025; Chronic proximal biceps rupture Activity: Do not lift anything heavier than a coffee. You should keep your arm at your side in a relatively neutral position at all times except for gentle range of motion exercises, physical therapy, and essential activities. You should use the sling whenever you are out of the house. At home it is best to remove the sling and rest the arm on a pillow at your side or support the operative side with your other hand. A physical therapy prescription will be sent electronically to start in about 3 weeks. STANDARD Reverse TSA Protocol. Prescriptions: Naproxen 250 mg take 1 every 12 hours with a meal as needed for moderate pain Oxycodone 5 mg take 1-2 every 4-6 hours as needed for severe pain You may use jxbl-snt-wdqvifo Tylenol (acetaminophen) as needed for mild pain. These pain medications may be taken all at once or in different combinations as needed. Also, recommend Colace (docusate) as a stool softener as surgery and pain medicine cause constipation. You may try psou-dko-nrttjig diphenhydramine (Benadryl) 25-50 mg nightly as a sleep aid Dressings: Leave dressing in place until follow-up. Keep clean and dry at all times. No showers please. Follow-up: 10-[address] Zhang You may take off the leg compression stockings this evening at home. You may also leave them on a few days longer if you have a history of leg swelling or edema. Please call the office during business hours with any questions or concerns. Let us know right away if you develop any redness, drainage, fevers, chest pain, or trouble breathing. Do not drink alcohol or drive for at least 24 hours after anesthesia. Discharge Orders Discharge Orders: Discharge Order (Routine); Ordered 03/20/25 Ordered By: Roney Alas DS: Diagnosis Discharge Diagnosis (1) Left rotator cuff tear arthropathy: Status: Acute (2) Arthritis of left shoulder region: Status: Acute (3) Rupture of left proximal biceps tendon: Status: Acute
--- NOTE | 2025-03-20 07:32 | ROE_ITS ---
Operative Note Operative Note PRE-OP DIAGNOSIS: Left: 1. Rotator cuff arthropathy 2. Glenohumeral arthritis 3. Proximal biceps rupture POST-OP DIAGNOSIS: same PROCEDURE: Left: 1. Reverse total shoulder arthroplasty, CPT # 52046 The entry level marketing assistant was medically required as this procedure involves retraction, protection of neurovascular structures, and manipulation of multiple instruments and implants at the same time, which cannot be done without a skilled entry level marketing assistant. SURGEON: Isauro Zhang AIRLINE TRANSPORT PILOT: Roney Alas ANESTHESIA TYPE: Local By Surgeon, General LMA/ETT and Primary Nerve Block Refer to Anesthesia Record ESTIMATED BLOOD LOSS: 150 COMPLICATIONS: None Patient was transported to: PACU Patient's condition: stable Implants: [employer] modular glenoid system baseplate 24 mm +2 lateral [employer] modular glenoid system central post 30 mm [employer] modular glenoid system peripheral locking screws 36 mm inferior, 28 mm superior, 16 mm posterior, 16 mm anterior [employer] modular glenoid system glenosphere 33 +4 mm lateralized [employer] humeral stem 135 degrees size 6 [employer] suture cup size 33 neutral [employer] spacer size 33 +6 mm [employer] humeral insert size 33 +3 mm constrained Indications: Please see complete medical record for details. Findings: Absent long head biceps due to chronic proximal rupture. Largely deficient supraspinatus and infraspinatus. Moderate grade thinning partial tearing subscapularis. Moderately high-grade glenohumeral cartilage and cuevas labral tearing. Diminutive proximal humerus and glenoid. Procedure Description: In the operating room, general anesthesia was induced. The patient was positioned beachchair on the operating room table. All bony prominences were well-padded. Preoperative antibiotics were administered. The shoulder was prepped and draped in the usual sterile fashion for shoulder arthroplasty. The correct patient, procedure, and side of the procedure were all verified prior to incision. The deltopectoral approach was preinjected with 0.25% bupivacaine containing epinephrine and taken to the anterior shoulder. Care was taken to bluntly dissect the interval between the deltoid and pectoralis major muscles and to identify the cephalic vein within its fat stripe. The the vein was mobilized laterally. Subdeltoid space and conjoined tendon were freed of adhesions. The long head of the biceps tendon was identified just lateral to the lesser tuberosity. The uppermost margin of the pectoralis major tendon was released from the proximal humerus. The long head of the biceps tendon was tenodesed in situ using SutureTape in a [id number] fashion securing it superior margin the pectoralis major tendon. The biceps tendon was amputated and followed proximally to identify the rotator interval. A subscapularis tenotomy was done gradually working into external rotation, removing the tendon remnant from the lesser tuberosity to minimize anterior impingement and carefully working on bone inferiorly while bringing the arm into external rotation and achieving appropriate hemostasis. The supraspinatus and infraspinatus were identified and debrided of minimal remnant superiorly. The anatomic neck was cut using an oscillating saw with the humeral head bone brought back table in case there was a need for future bone grafting. The proximal humerus was delivered from the wound with adduction and external rotation. The proximal humeral protection plate was used to provisionally confirm suture cup and glenosphere size. Reamers were started appropriately posterior to the bicipital groove taking care to maintain in line approach with the humeral canal. Sequential reaming was done from size 5 up to size 6. Next, the broaches were sequentially used to open the proximal humerus starting with a size 5 and going up to size 6 and sunk to the appropriate depth while maintaining approximately 25 degrees retroversion. There was good metaphyseal fit and rotational control of the proximal humerus with this size. The center offset guide was used to ream for the suture cup. Attention was then turned to the glenoid and retractors were placed and a circumferential release performed using the long head of the biceps remnant to remove soft tissue about the glenoid rim. Care was taken inferiorly to work on bone only between 5 and 7:00 o'clock and bluntly elevate tissues inferiorly. The VIP guide was placed on the glenoid and used to confirm placement and trajectory of the central guidepin. The guidepin was inserted and advanced just through the far cortex ensuring adequate central fixation length. The glenoid was prepared according to over short and damage clerk specifications for a standard baseplate and central post. The baseplate was impacted onto the glenoid surface. The locking guide was then used to drill and place appropriately lengthed inferior, superior, anterior, and posterior screws. The [id number] reamer was used to confirm adequate peripheral reaming. The glenosphere was applied with the crystalizer and then impacted to engage the Cabral taper. It was then locked with appropriate countersinking of the setscrew. The glenosphere was inspected and found to have good fit, appropriate positioning, and no soft tissue or bony impingement. Attention was then turned back to the proximal humerus. The humeral trial cup was connected. Trialing was commenced with +3 mm liner. The shoulder was reduced and taken through range of motion. Trial components were built up to +6 mm spacer and +3 mm liner to achieve good stability and appropriate tension on the deltoid and conjoined tension. The trial components were removed from the proximal humerus. The wound was copiously irrigated with normal saline. The the proximal humeral stem and suture cup were assembled and brought over the proximal humerus. A small amount of vancomycin powder was distributed in the proximal humerus. The humeral component and suture cup were impacted into place. The trial spacer and liner were added, and the shoulder was reduced and range of motion, stability, and tension confirmed to be appropriate. The final spacer and liner were then connected, constrained chosen due to devoid rotator cuff, and range of motion, stability, and tension confirmed. The shoulder was copiously irrigated with Betadine and normal saline. Vancomycin powder was distributed deeply about the shoulder and through subcutaneous tissues. The deltopectoral interval was approximated with 2-0 Monocryl burying the cephalic vein. Subcutaneous tissue was irrigated then closed using 2-0 Monocryl in a buried interrupted fashion. Skin was closed using 3-0 Monocryl in a buried subcuticular fashion. Skin glue was applied to the incision. A silver impregnated bandage was placed over the incision. The extremity was placed into a shoulder immobilizer. The patient awoke from anesthesia without complication and was taken to the recovery room in stable condition. Date of Procedure: 03/20/25
[2025-03-20] MEDS: Lactated Ringers 1,000 ML 30 ML IV (10:25)
--- NOTE | 2025-03-20 11:02 | W.ANESPRE ---
General Info Date of Service Date Performed: 03/20/25 Height: 5 ft 4 in Weight: 71.2 kg Body Mass Index (BMI): 26.9 Surgical Procedure: Operation Date: 03/20/25 10:55 Proposed Procedure Side Surgeon p Shoulder Reverse Total Arthroplasty, Biceps Tenodesis Left Isauro Zhang MD Actual Procedure Side Surgeon p Shoulder Reverse Total Arthroplasty, Biceps Tenodesis Left Isauro Zhang MD Pre-Op Diagnosis Post-Op Diagnosis Left rotator cuff tear Meds Allergies and Home Medications Allergies Allergy/AdvReac Type Severity Reaction Status Date / Time No Known Allergies Allergy Verified 03/20/25 09:50 Home Medication Medication Instructions Recorded coenzyme Q10 100 mg capsule (Co 100 mg PO DAILY 03/17/22 Q-10) folic acid 1 mg tablet 2 mg PO DAILY 03/17/22 lisinopril 10 mg tablet 10 mg PO DAILY 03/17/22 pravastatin 20 mg tablet 20 mg PO DAILY 03/17/22 valacyclovir 500 mg tablet 500 mg PO DAILY PRN 01/17/24 [id number] 333 mg-133 1 tab PO DAILY 05/03/24 mg-5 mg tablet acetaminophen 500 mg tablet 1,000 mg (2 x 500 mg) PO Q8H PRN 05/17/24 pain #90 tabs marijuana gummie 05/17/24 leucovorin calcium 5 mg tablet 5 mg PO .sundays09/23/24 methotrexate sodium 2.5 mg tablet 8 mg PO BID 09/23/24 naproxen 250 mg tablet 250 mg PO BID PRN Moderate pain 03/20/25 #25 tabs oxycodone 5 mg tablet 5 - 10 mg (1 - 2 x 5 mg) PO Q4H 03/20/25 PRN Moderate to severe pain #18 tabs Current Visit Medications: Current Medications Generic Name Dose Route Start Last Admin Trade Name Freq PRN Reason Stop Dose Admin Ringer's Solution 1,000 mls @ 30 mls/hr 03/20/25 06:00 03/20/25 10:25 IV 03/20/25 23:59 30 mls/hr INFUSION SORAYA Administration Cefazolin Sodium/Dextrose 2 gm in 50 mls @ 100 mls/hr 03/20/25 06:00 Ancef Duplex IVPB 03/20/25 23:59 PREOP SORAYA Tranexamic Acid/Sodium Chloride 1,000 mg in 100 mls @ 600 mls/hr 03/20/25 06:00 IVPB 03/20/25 23:59 PREOP SORAYA Cefazolin Sodium/Dextrose 1 gm in 50 mls @ 100 mls/hr 03/20/25 15:00 Ancef Duplex IVPB 03/20/25 15:29 NOW ONE IV Miscellaneous Supplies 1 each 03/20/25 06:00 Iv Access IV 03/20/25 23:59 DIRECTED SORAYA Lactobacillus Acidophilus/Casei 1 cap 03/20/25 15:00 L. Acidophilus, Casei, Rhamnosus Cap PO 03/20/25 15:01 DAILY ONE Oxycodone HCl 5 mg 03/20/25 07:23 Oxycodone 5 Mg Tab PO 04/19/25 07:22 Q3H PRN PRN Pain Sodium Chloride 0 ml 03/20/25 06:00 Normal Saline Flush 10 Ml Syr IV 03/20/25 23:59 PRN PRN Sodium Chloride 0 ml 03/20/25 06:00 Normal Saline 10 Ml Vial IJ 03/20/25 23:59 DIRECTED PRN Sterile Water 0 ml 03/20/25 06:00 Water,Injection,Sterile 10 Ml Vial IJ 03/20/25 23:59 DIRECTED PRN PFSH Active Problems Active Problems: Problem Status Onset Code Left rotator cuff tear arthropathy Acute M75.102, M12.812 Left rotator cuff tear Acute M75.102 Arthritis of left shoulder region Acute M19.012 Osteoarthritis of right knee Acute M17.11 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 states she is prone to superficial phlebitis TGA (transient global amnesia) Last March - following phone call about her scheduled right shoulder surgery Denies additional episodes; negative neuro work up Medical History Comments:: pt. reports it take alot to get her under Surgical History Surgical History History of total left hip replacement (05/17/24) Status post tubal ligation H/O colonoscopy History of breast lump/mass excision s/p right and left mass excisions mammos yearly Status post vein stripping bilateral Status post arthroscopy of right knee Fracture of right distal radius s/p ORIF Followed by hardware removal Status post right rotator cuff repair (04/24/23) Tobacco Smoking/Tobacco Use Status: Former Tobacco Use Passive smoking exposure: No Alcohol Alcohol Intake: current Alcohol intake frequency: a few times a week Substance Use Substance use: Daily Substance use type: marijuana Details: Gummies HS for sleep. alcohol t-1, 2 glasses of wine Vital Signs and Lab Results Vital Signs Most Recent Vital Signs in EMR: Most Recent Vital Signs Temp Pulse Resp BP Pulse Ox 36.6 C 75 16 161/65 H 99 03/20/25 09:35 03/20/25 09:35 03/20/25 09:35 03/20/25 09:35 03/20/25 09:35 Anesthesia Assessment and Plan Anesthesia History Personal History: No History of Anesthesia Complications Family History: No Family History of Anesthesia Complications Exercise Tolerance Exercise Tolerance: Metabolic Equivalents>4 Pertinent Negatives Pertinent Negatives: No Symptoms of GERD, No Major Cardiovascular Symptoms or Complaints, No Major Pulmonary Symptoms or Complaints and No History of CVA/TIA Cardiac & Pulmonary Exam Cardiac Exam: Normal S1/S2 Heart Sounds Pulmonary Exam: Clear Bilateral Breath Sounds Implantable Cardiac Device Does patient have a Pacemaker or an ICD?: No Airway Exam Known Difficult Airway: No Mallampati Class: 2 Mouth Opening: Normal (> 3cm) Thyromental Distance: Greater than 3 cm Neck Range of Motion: Limited ROM Neck Circumference: Normal Teeth Condition: Normal Dentition ASA Classification ASA Score: ASA 3 Emergency Case?: No NPO Status NPO Status: NPO Clears >2 hours, Solids >8 hours Anesthesia Plan Resuscitation Status: Full Code Anesthesia Technique: General Anesthesia Airway Planned: Endotracheal Tube Pain Management: Surgeon and patient request nerve block Monitors Used: Standard Monitors and SedLine
[2025-03-20] MEDS: ceFAZolin 2 GM/50 ML BAG IVPB (11:17)
[2025-03-20] MEDS: TRANEXAMIC ACID/SOD. CHL. 1,000 MG/100 ML BAG 600 MG IVPB (11:29)
[2025-03-20] MEDS: Vancomycin 1,000 MG VIAL 1000 MG (11:50)
[2025-03-20] MEDS: Bupivacaine 0.25% Pres-Free W/EPI 30 ML VIAL (11:50)
--- NOTE | 2025-03-20 14:37 | W.ANESPOSTOP ---
Postoperative Evaluation Date, Time and Location Date Performed: 03/20/25 Time Performed: 14:37 Patient Location: Day Surgery Unit Vital Signs Most Recent Imported Vital Signs: Most Recent Vital Signs Temp Pulse Resp BP Pulse Ox 36.2 C L 62 21 152/84 H 98 03/20/25 13:58 03/20/25 14:30 03/20/25 14:30 03/20/25 14:26 03/20/25 14:30 Pain Score Most Recent Pain Score: Most Recent Pain Score Pain Level 0 03/20/25 14:25 Assessment Mental Status: Awake (Alert & Oriented to Patient Baseline) Airway and Respiratory Function: Patent airway with normal (patient baseline) respiratory exam Cardiovascular Function: Hemodynamically Stable Hydration Status: Adequately Hydrated Nausea & Vomiting: No Nausea or Vomiting Pain: Pt. Denies Any Pain Peripheral Nerve Block: Regional nerve block not resolved at time of post operative discharge
[2025-03-20] MEDS: ceFAZolin 1 GM/50 ML BAG IVPB (14:56)
--- NOTE | 2025-03-20 15:00 | DI.RAD_ITS ---
Exam(s) XR SHOULDER LT COMPLETE 2+V EXAM: XR SHOULDER LT COMPLETE 2+V CLINICAL HISTORY: Shoulder Arthritis. TECHNIQUE: 2D digital imaging was performed. COMPARISON: No exams were available for comparison FINDINGS: Postop views There is satisfactory position alignment of the components of the newly placed reverse shoulder prosthesis. No fracture or loosening evident. IMPRESSION: Satisfactory postop appearance. DATA REPOSITORY: RADIATION DOSE DELIVERED:
[2025-03-20] MEDS: Lactobacillus Acidophilus CAP 1 CAP PO (15:14)
--- NOTE | 2025-03-21 12:11 | W.ANESNERVE ---
Nerve Block Single Injection Procedure Date and Time Date Performed: 03/20/25 Procedure Start: 10:50 Location Where Procedure Performed Procedure Location: Day Surgery Unit Reason Performed: Postoperative Analgesia Requesting Provider: Isauro Zhang Timeout Performed Timeout Performed: Yes Monitoring Used ECG, Blood Pressure, SpO2 and See EMR for corresponding vital signs Sterility Sterility: Hand Hygiene, Surgical Cap, Surgical Mask, Sterile Gloves and Chlorhexidine Sedation Given During Procedure Sedation Given (Indicate Dose Given): Versed IV Dose:: 1mg Patient Mental Status Patient Mental Status: Sedate with meaningful communication Nerve Block 1st Nerve Block: Laterality: Left Block Type: Interscalene Ultrasound Image Saved?: Yes Needle / Catheter Used: 80mm SonoPlex II Local Anesthetic Bolus (Indicate Dose Given): Lidocaine used for local infiltration of skin, Injected in 3-5ml increments after negative blood aspiration, Bupivacaine 0.5% Dose:: 10mL and Exparel Dose:: 10mL Additives (Indicate Dose Given): None Ultrasound: Sterile probe cover and gel used Nerve Stimulator: Supplement to Ultrasound use and No twitch or parasthesia noted < 0.5 mA (0.8mA, motor response elicited localized to image, no physical response or discomfort per patient) Paresthesia: None Procedure Tolerated: No Complications and Patient tolerated well Procedure Outcome: Successful Performed By: Sydnie Ignacio Supervised By: Nataliia Shepherd
== END 2025-03-20 15:42 | disposition home or self-care (01) ==
LOC: SUR 09:28
PROVIDERS: PCP Family Medicine; Visit Provider Student in an Organized Health Care Education/Training Program
PROC: (CPT 23472; principal; 2025-03-20 10:45)
DX: S46.112A Strain of muscle, fascia and tendon of long head of biceps, left arm, initial encounter (principal); M12.812 Other specific arthropathies, not elsewhere classified, left shoulder; X58.XXXA Exposure to other specified factors, initial encounter; G89.18 Other acute postprocedural pain
CPT/HCPCS: 23472; 64415; 73030; J0131; J0665; J0666; J0690; J1100; J1885; J2003; J2250; J2371; J2405; J2704; J3373; J3475

== ENCOUNTER 2025-04-01 15:03 | Outpatient (CLI) | payer MEDICARE, OTHER, SELFPAY ==
--- NOTE | 2025-04-01 14:00 | DI.RAD_ITS ---
Exam(s) XR SHOULDER LT COMPLETE 2+V EXAM: XR SHOULDER LT COMPLETE 2+V INDICATION: F/U LEFT RTSA. COMPARISON: CR XR SHOULDER LT COMPLETE 2+V from 03/20/2025 TECHNIQUE: 2D digital imaging was performed. Two views. FINDINGS: Stable positioning of reverse shoulder prosthesis. Some residual postsurgical air remains present in the soft tissues. DATA REPOSITORY: RADIATION DOSE DELIVERED:
== END 2025-04-01 15:04 | disposition home or self-care (01) ==
LOC: DIORS 15:03
PROVIDERS: PCP Family Medicine; Referring Provider Family Medicine; Visit Provider Student in an Organized Health Care Education/Training Program
DX: Z47.1 Aftercare following joint replacement surgery (principal); Z96.612 Presence of left artificial shoulder joint; M19.012 Primary osteoarthritis, left shoulder
CPT/HCPCS: 99024; 73030

== ENCOUNTER → 2025-05-21 10:25 | Outpatient (BNVA) | payer MEDICARE, OTHER, SELFPAY | PROVIDERS: PCP Family Medicine; Referring Provider Family Medicine; Visit Provider Physician Assistant | DX: S46.212D Strain of muscle, fascia and tendon of other parts of biceps, left arm, subsequent encounter (principal); M75.102 Unspecified rotator cuff tear or rupture of left shoulder, not specified as traumatic; M19.012 Primary osteoarthritis, left shoulder; X58.XXXD Exposure to other specified factors, subsequent encounter | CPT/HCPCS: 99024 ==